=== PATIENT | male | born 1985 | race Caucasian/White ===

== ENCOUNTER 2017-12-02 06:01 | Emergency (ER) | payer OTHER ==
[~2017-12-02] VITALS: Ht 167.6 cm; Wt 87.5 kg
[2017-12-02 06:09] VITALS: Ht 167.6 cm; Wt 87.5 kg
[2017-12-02 07:38] VITALS: BP 124/69
== END 2017-12-02 07:38 | disposition home or self-care (01) ==
LOC: ED 06:01
DX: M54.9 Dorsalgia, unspecified (principal)
CPT/HCPCS: J1885